=== PATIENT | male | born 1995 | race Asian ===

== ENCOUNTER 2019-04-28 14:21 | Emergency (ER) | payer OTHER ==
[~2019-04-28] VITALS: Ht 165.1 cm; Wt 56.7 kg
[2019-04-28 14:29] VITALS: BP 106/64
--- NOTE | 2019-04-28 14:43 | NUR ---
DYSURIA AND LOWER ABD PAIN SINCE YESTERDAY. YELLOWISH DISCHARGE. DENIES HEMATURIA. 4-02/14 HX: UTI, APPENDECTOMY . DENIES N/V/D; SKIN IS PINK/WARM/DRY; AAOX4 WITH EVEN AND STEADY GAIT; LUNGS CLEAR BL; HR EVEN AND REGULAR; PT DENIES ANY FEVER, CP, SOB, OR COUGH AT THIS TIME; PATIENT STATES PAIN OF 5/10 AT THIS TIME; VSS; PATIENT POSITIONED FOR COMFORT; HOB ELEVATED; BEDRAILS UP X2; BED DOWN. ER MD MADE AWARE OF PT STATUS.
[2019-04-28 15:09] LABS: APPEARANCE,URINE CLEAR (CLEAR); BILIRUBIN,URINE NEGATIVE (NEGATIVE); BLOOD, URINE NEGATIVE (NEGATIVE); COLOR,URINE YELLOW (YELLOW); LEUKOCYTE ESTERASE ,URINE NEGATIVE (NEGATIVE); NITRITE, URINE NEGATIVE (NEGATIVE); PH,URINE 6.5 (5.0-9.0); UGLUCOSE NEGATIVE (NEGATIVE)
[2019-04-28] MEDS ORDERED: AZITHROMYCIN 250 MG TAB PO ONE (15:55)
[2019-04-28 16:20] VITALS: BP 108/62
[2019-04-30 06:12] LABS: CHLAMYDIA TRACHOMATIS AMP DNA Negative (Negative)
== END 2019-04-28 16:21 | disposition home or self-care (01) ==
LOC: MED 14:21
DX: R30.0 Dysuria (principal); Z11.3 Encounter for screening for infections with a predominantly sexual mode of transmission; R10.30 Lower abdominal pain, unspecified; Z88.0 Allergy status to penicillin
CPT/HCPCS: 36415; 81003; 87491; 99283

== ENCOUNTER 2019-10-14 12:09 | Emergency (ER) | payer OTHER ==
[~2019-10-14] VITALS: Ht 165.1 cm; Wt 54.4 kg
[2019-10-14 12:21] VITALS: BP 115/70
--- NOTE | 2019-10-14 12:30 | NUR ---
24/M TO ED WITH C/O BODY ACHES, FEVER AT HOME, AND CHILLS X 2 DAYS. DENIES N/V. DENIES COUGH OR DIFFICULTY BREATHING. NO DISTRESS NOTED. IN BED FOR MSE.
[2019-10-14 13:33] VITALS: BP 115/70
--- NOTE | 2019-10-14 13:34 | NUR ---
Patient discharged with v/s stable. Written and verbal after care instructions given and explained. Patient alert, oriented and verbalized understanding of instructions. Ambulatory with steady gait. All questions addressed prior to discharge. ID band removed. Patient advised to follow up with PMD. Rx of CODEINE/PROMETHAZINE, IBUPROFEN, ZOFRAN, TAMIFLU given. Patient educated on indication of medication including possible reaction and side effects. Opportunity to ask questions provided and answered.
== END 2019-10-14 13:34 | disposition home or self-care (01) ==
LOC: MED 12:09
DX: J11.1 Influenza due to unidentified influenza virus with other respiratory manifestations (principal); Z88.0 Allergy status to penicillin
CPT/HCPCS: 99283